=== PATIENT | male | born 1980 | race Two or more races ===

== ENCOUNTER 2018-04-25 07:54 | Emergency (ER) | payer OTHER ==
[2018-04-25 08:06] VITALS: BP 131/96
--- NOTE | 2018-04-25 08:12 | EDPHY ---
H & P Stated Complaint: right 2nd digit crushing injury while at work today 1500 Time Seen by Provider: 04/25/18 07:59 HPI/ROS: CHIEF COMPLAINT: Crushed finger HISTORY OF PRESENT ILLNESS: The patient is a 37-year-old man who was working yesterday and he crushed his right index finger underneath some [place]. He comes to the ER today with increased pain underneath his fingernail and a subungual hematoma. Normal range of motion of his finger otherwise. He denies other injuries. He tried to drain it himself yesterday but poked himself with a needle in the fat pad of his finger. Severity: Moderate Modifying factors: None REVIEW OF SYSTEMS: Constitutional: denies: chills, fever, recent illness, recent injury EENTM: denies: blurred vision, double vision, nose congestion Respiratory: denies: cough, shortness of breath Cardiac: denies: chest pain, irregular heart rate, lightheadedness, palpitations Gastrointestinal/Abdominal: denies: abdominal pain, diarrhea, nausea, vomiting, blood streaked stools Genitourinary: denies: dysuria, frequency, hematuria, pain Musculoskeletal: See HPI Skin: denies: lesions, rash, jaundice, bruising Neurological: denies: headache, numbness, paresthesia, tingling, dizziness, weakness Hematologic/Lymphatic: denies: blood clots, easy bleeding, easy bruising Immunologic/allergic: denies: HIV/AIDS, transplant 10 systems reviewed and negative except as noted EXAM: GENERAL: Well-appearing, well-nourished and in no acute distress. HEAD: Atraumatic, normocephalic. EYES: Pupils equal round and reactive to light, extraocular movements intact, sclera anicteric, conjunctiva are normal. ENT: TMs normal, nares patent, oropharynx clear without exudates. Moist mucous membranes. NECK: Normal range of motion, supple without lymphadenopathy or JVD. LUNGS: Breath sounds clear to auscultation bilaterally and equal. No wheezes rales or rhonchi. HEART: Regular rate and rhythm without murmurs, rubs or gallops. ABDOMEN: Soft, nontender, normoactive bowel sounds. No guarding, no rebound. No masses appreciated. BACK: No CVA tenderness, no spinal tenderness, step-offs or deformities EXTREMITIES: Subungual hematoma right index finger, no visible lacerations, minimal swelling. NEUROLOGICAL: Cranial nerves II through XII grossly intact. Normal speech, normal gait. 5/5 strength, normal movement in all extremities, normal sensation , normal reflexes PSYCH: Normal mood, normal affect. SKIN: Warm, dry, normal turgor, no visible rashes or lesions. Source: Patient Exam Limitations: No limitations - Personal History Current Tetanus Diphtheria and Acellular Pertussis (TDAP): Unsure - Medical/Surgical History Hx Asthma: No Hx Chronic Respiratory Disease: No Hx Diabetes: No Hx Cardiac Disease: No Hx Renal Disease: No Hx Cirrhosis: No Hx Alcoholism: No Hx HIV/AIDS: No Other PMH: htn - Family History Significant Family History: No pertinent family hx - Social History Smoking Status: Current every day smoker Alcohol Use: Sober Drug Use: None Constitutional: Initial Vital Signs Temperature (C) 36.9 C 04/25/18 08:00 Heart Rate 90 04/25/18 08:00 Respiratory Rate 18 04/25/18 08:00 Blood Pressure 131/96 H 04/25/18 08:00 O2 Sat (%) 97 04/25/18 08:00 O2 Delivery Mode Room Air Allergies/Adverse Reactions: No Known Allergies Allergy (Unverified 04/25/18 08:01) Home Medications: Medication Instructions Recorded "Blood Pressure & Heart Med" 04/25/18 Medical Decision Making - Diagnostics Imaging Results: Imaging Impressions Finger X-Ray 04/25/18 08:10 Impression: Nondisplaced fracture of the tuft of the distal phalanx of index finger. Imaging: I viewed and interpreted images myself (Small tuft fracture nondisplaced) Procedures: The patient's finger nail was trephinated with a hot iron. Blood was relieved. Patient felt improvement in symptoms. ED Course/Re-evaluation: The patient tolerated the procedure well. We will obtain an x-ray as well. The patient has a small nondisplaced tuft fracture. Is adequately splinted by the fingernail. His finger was cleaned and dressed. We discussed follow-up and indications for returning. Differential Diagnosis: Partial list of the Differential diagnosis considered include but were not limited to; subungual hematoma, nail bed laceration, fracture, crush injury and although unlikely based on the history and physical exam, I also considered laceration, assault, infection, foreign body. I discussed these differential diagnoses and the plan with the patient as well as the usual and expected course. The patient understands that the diagnosis is provisional and that in medicine we are not always correct and that further workup is often warranted. Usual and customary warnings were given. All of the patient's questions were answered. The patient was instructed to return to the emergency department should the symptoms at all worsen or return, otherwise to followup with the physician as we discussed. - Data Points Medications Given: Discontinued Medications Ibuprofen (Motrin) 600 mg PO EDNOW ONE Stop: 04/25/18 08:41 Last Admin: 04/25/18 08:41 Dose: 600 mg Departure - Departure Disposition: Home, Routine, Self-Care Clinical Impression: Subungual hematoma of right index finger, Tuft fracture right index finger Condition: Fair Instructions: Subungual Hematoma (ED), Finger Fracture (ED) Referrals: [facility],. [Clinic] - As per Instructions
[2018-04-25] MEDS ORDERED: IBUPROFEN 600 MG TAB PO ONE ×2 (08:39→08:40)
== END 2018-04-25 08:45 | disposition home or self-care (01) ==
LOC: CED 07:54
PROC: 0H9QXZZ Drainage of Finger Nail, External Approach (ICD-10-PCS; principal; 2018-04-25)
DX: S60.021A Contusion of right index finger without damage to nail, initial encounter (principal); S62.660A Nondisplaced fracture of distal phalanx of right index finger, initial encounter for closed fracture; F17.200 Nicotine dependence, unspecified, uncomplicated; W23.0XXA Caught, crushed, jammed, or pinched between moving objects, initial encounter; Y99.0 Civilian activity done for income or pay; Y92.9 Unspecified place or not applicable; Y93.9 Activity, unspecified
CPT/HCPCS: 73140-PO